=== PATIENT | female | born 1965 | race Caucasian/White ===

== ENCOUNTER 2025-05-20 13:21 | Outpatient (CLI) | payer MEDICAID, SELFPAY ==
--- NOTE | 2025-05-20 13:34 | DI.RAD_ITS ---
Exam(s) XR ELBOW RT COMPLETE EXAM: XR ELBOW RT COMPLETE CLINICAL HISTORY: RIGHT ELBOW PAIN, M25.521. TECHNIQUE: 2D digital imaging was performed of the left elbow. Three images were obtained. AP, lateral and oblique views were obtained. COMPARISON: No exams were available for comparison FINDINGS: BONES: The bones are normally mineralized. No bony destructive lesion is seen. There is a 2 mm linear density adjacent to the coronoid process on the oblique view of the elbow. JOINTS: The elbow is normally aligned. No joint effusion is seen. SOFT TISSUE: Normal. IMPRESSION: 2 mm linear density adjacent to the coronoid process on the oblique view of the elbow. A small fracture fragment cannot be excluded. Please correlate with the patient's clinical history. This is otherwise an unremarkable examination. There is no joint effusion. DATA REPOSITORY: RADIATION DOSE DELIVERED:
== END 2025-05-20 13:41 ==
PROVIDERS: Visit Provider Physician Assistant Medical
DX: M25.521 Pain in right elbow (principal)
CPT/HCPCS: 73080

== ENCOUNTER 2025-08-09 14:24 | Emergency (ER) | payer MEDICAID, SELFPAY ==
[2025-08-09 14:39] VITALS: BP 141/85; PULSE 78; RESP 18; TEMP 37.3; O2SAT 95
--- NOTE | 2025-08-09 14:46 | W.ED.GENAD ---
Discharge Plan Disposition Patient Disposition: Home Condition: Stable Discharge Details Clinical Impression: Dyspnea on exhalation Primary Care Provider: Unknown,Unknown ED Provider: Miki Canseco Home Meds and New Rx's Prescriptions: Continued chlorhexidine gluconate 0.12 % mouthwash PO Patient Comments: PLACE 15 ML TWO TIMES A DAY BY MUCOUS MEMBRANCE ROUTE FOR 30 DAYS Discharge Instructions Instructions: Breathing Exercises Referrals: Clinton Alvarado MD [ [facility] STAFF PHYSICIAN, ENT Surgical] Referral Note: call for appointment Discharge Data Discharge Physician: Miki Canseco HPI General Date/Time Provider Initiated Documentation: 08/09/25 14:46. 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 Related Data Home Medications ?Medication ?Instructions ?Recorded ?Confirmed chlorhexidine gluconate 0.12 % PO 08/09/25 mouthwash Allergies Allergy/AdvReac Type Severity Reaction Status Date / Time No Known Allergies Allergy Unverified 08/09/25 14:44 General Stated Complaint: RespSymp ERNESTINA: 3 Review of Systems Narrative: Review of Systems: Constitutional: No fevers, chills, sweats Eye: No recent visual problems ENT: No ear pain, nasal congestion, sore throat Respiratory: , cough Cardiovascular: No Chest pain, palpitations, syncope Gastrointestinal: No nausea, vomiting, diarrhea Genitourinary: No hematuria David/Lymph: Negative for bruising tendency, swollen lymph glands Endocrine: Negative for excessive thirst, excessive hunger Musculoskeletal: No back pain, neck pain, joint pain, muscle pain, decreased range of motion Integumentary: No rash, pruritus, abrasions Neurologic: Alert & oriented X 4 Psychiatric: No anxiety, depression Exam Narrative Exam Narrative: Exam; vitals signs as reported above normal Constitutional; In no acute distress, afebrile General: cooperative, healthy appearing, comfortable and no acute distress HEENT: Head: normal to inspection, no palpable skull fracture and normocephalic atraumatic Eyes: : appearance normal, both eyes and all related structures EOM intact bilaterally Pupils: PERRL : conjunctiva normal Direct ophthalmoscopy: normal light reflex, normal conjunctiva, normal visual acuity Ears: Normal TM, normal external canal Nose: normal no rhinorreha Neck no JVD, supple non tender no lymphadenopathy thyroid in good condition no goiter Neck: normal visual inspection, full ROM and no lymphadenopathy Chest: normal inspection of the chest Respiratory : normal respiratory effort and able to speak in complete sentences no wheezing no rales Cardio Rate: regular rate, rhythm: regular rhythm normal heart sounds S1 and S2 no murmurs, gallops, or rubs GI : normal to inspection, normal bowel sounds, soft, non tender, non distended, no organomegaly Back/Spine/ no CVA tenderness Thoracic/Lumbar Spine: no tenderness or deformities Skin no rashes or lesions Neuro: patient alert oriented x 4 and no meningeal signs, Cranial Nerves: CN's II-XI intact bilaterally, Cognition: normal cognition, Speech: speech normal, Gait: normal gait, Depp tendon reflexes normal 2+ muscle strength 5/5 bilaterally Extremities, no edema, full range of motion, normal strength Course Vital Signs Vital signs: Vital Signs Temperature 37.3 C 08/09/25 14:39 Pulse 78 08/09/25 14:39 Respiratory Rate 18 08/09/25 14:39 Blood Pressure 141/85 H 08/09/25 14:39 Pulse Oximetry 95 08/09/25 14:39 Temperature 37.3 C 08/09/25 14:39 Pulse 78 08/09/25 14:39 Respiratory Rate 18 08/09/25 14:39 Blood Pressure 141/85 H 08/09/25 14:39 Pulse Oximetry 95 08/09/25 14:39 Pain Level 2 08/09/25 14:39 Medical Decision Making MDM: Summary: Patient presented to the emergency department after she was singing today physician setting and while and felt a bit short of breath at this time I feel it is more deconditioning since she has dysfunction she had an abscessed tooth. There is no stridor or noticeable vocal cord abnormality she is not dysarthric or dysphonic. X-ray was done which shows a normal patent airway and normal lungs as read by radiologist. As time I reassured that she could follow ENT and also she says she hired a vocal specialist for conditioning. At this time she can be safely discharged Data Review Analysis All the data on this patient was reviewed by me including laboratory and imaging studies as well as bedside studies performed by me Independent review of Studies Imaging Lab: Risk Stratification: Basically who had episode of shortness of breath while singing she could be safely discharge Differential Diagnosis: 1. Dysphonia 2. Dysarthria 3. Deconditioning 4. Dyspnea 5. Consultants: Shared disposition: Patient decides disposition will follow-up with ENT Impression: Medical Records Medical records reviewed: Yes I reviewed the patient's medical records. Imaging Data Radiologic Study: Attestation: I personally reviewed and interpreted this imaging study as follows: Imaging: X-Ray Radiologist's impression: Launch?Image Patient Name: Rosaline Suazo Unit #: [id number] Loc: ER Ordering Provider: Miki Canseco M.D. Status: REG ER Primary Care Provider: Unknown,Unknown Date of Exam: 08/09/25 Sex: F Admission Date: 08/09/25 : 1965 Age: 60 Exam(s) XR CHEST 2V PA LATERAL EXAM: XR CHEST 2V PA LATERAL CLINICAL HISTORY: SOB while singing TECHNIQUE: 2D digital imaging was performed of the chest. Two images were obtained. PA and lateral views were obtained. COMPARISON: No exams were available for comparison FINDINGS: MEDIASTINUM: Normal. HEART: Normal. PULMONARY VASCULATURE: Normal. LUNGS: Clear. PLEURAL SPACE: No pleural effusion or pneumothorax. BONE:Within normal limits for the patient's age. OTHER FINDINGS:Normal. IMPRESSION: No acute pulmonary findings. DATA REPOSITORY: RADIATION DOSE DELIVERED: [facility] All Active Problems (Updated 08/09/25 @ 16:19 by Miki Canseco MD) Dyspnea on exhalation (Acute) Social History Smoking/Tobacco Use Status: Never Smoking risk assessment performed?: Yes Alcohol Intake: current Alcohol Intake frequency: 0-2 drinks per day Drug use: Never Substance use type: does not use Housing: apartment Do you feel safe at home: Yes Do you feel safe in your relationship?: Yes
--- NOTE | 2025-08-09 15:00 | DI.RAD_ITS ---
Exam(s) XR CHEST 2V PA LATERAL EXAM: XR CHEST 2V PA LATERAL CLINICAL HISTORY: SOB while singing TECHNIQUE: 2D digital imaging was performed of the chest. Two images were obtained. PA and lateral views were obtained. COMPARISON: No exams were available for comparison FINDINGS: MEDIASTINUM: Normal. HEART: Normal. PULMONARY VASCULATURE: Normal. LUNGS: Clear. PLEURAL SPACE: No pleural effusion or pneumothorax. BONE:Within normal limits for the patient's age. OTHER FINDINGS:Normal. IMPRESSION: No acute pulmonary findings. DATA REPOSITORY: RADIATION DOSE DELIVERED:
[2025-08-09 16:59] VITALS: BP 159/95; PULSE 70; RESP 16; TEMP 37; O2SAT 96
== END 2025-08-09 17:01 | disposition home or self-care (01) ==
PROVIDERS: Emergency Provider Emergency Medicine Emergency Medical Services
DX: R06.09 Other forms of dyspnea (principal); R06.02 Shortness of breath
CPT/HCPCS: 99283 ×2; 71046